=== PATIENT | female | born 1950 | race Caucasian/White ===

== ENCOUNTER → 2018-06-20 | Outpatient (CLI) | payer OTHER ==
[~2018-06-20] MED LIST: AMITRIPTYLINE; CARVEDILOL12.5 MG PO; EXFORGE; FLECAINIDE ACET50 M1 PO; FLONASE; METFORMIN; NEXIUM; SINGULAIR 10 MG10 M1 PO; XANAX 0.5 MG0.5 M1; ZANTAC; ZOCOR 20 MG TAB20 M1 PO
== END | disposition home or self-care (01) ==
LOC: LITH 15:29
DX: N20.0 Calculus of kidney (principal); I10 Essential (primary) hypertension; E11.9 Type 2 diabetes mellitus without complications; J45.909 Unspecified asthma, uncomplicated; K21.9 Gastro-esophageal reflux disease without esophagitis; F32.9 Major depressive disorder, single episode, unspecified; F41.9 Anxiety disorder, unspecified; Z90.710 Acquired absence of both cervix and uterus; Z98.890 Other specified postprocedural states; Z90.49 Acquired absence of other specified parts of digestive tract; Z88.2 Allergy status to sulfonamides; Z88.8 Allergy status to other drugs, medicaments and biological substances